=== PATIENT | female | born 2000 | race Two or more races ===

== ENCOUNTER 2025-01-24 08:48 | Emergency (ER) | payer MEDICAID ==
[~2025-01-24] VITALS: Ht 165.1 cm; Wt 140.8 kg
[2025-01-24 09:11] VITALS: BP 141/95; PULSE 93; RESP 18; TEMP 98.8; O2SAT 98
--- NOTE | 2025-01-24 09:22 | ED.PDOC ---
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 PATIENT STATES SHE HAS BEEN EXPERIENCING VAGINAL BLEEDING FOR THE PAST 1.5 YEARS WITH WORSENING SYMPTOMS OVER LAST 4 MONTHS. PATIENT NOTES SHE HAD AN ULTRASOUND DONE 3 WEEKS AGO, BUT IS STILL PENDING HER RESULTS. PATIENT STATES SHE IS NOW EXPERIENCING MILD DIZZINESS DUE TO HER VAGINAL BLEEDING AND WOULD LIKE TO BE EVALUATED. PATIENT REPORTS SHE WAS PRESCRIBED PROVERA FOR HER BLEEDING, BUT STATES HE HAS NOT BEEN HELPING HER SYMPTOMS. PATIENT DENIES DYSURIA, HEMATURIA, VAGINAL DISCHARGE, FEVER, CHILLS, SHORTNESS OF BREATH, CHEST PAIN, ABDOMINAL PAIN, NAUSEA, VOMITING, HEADACHE, OR OTHER COMPLAINTS. NO OTHER SYMPTOMS OR MODIFYING FACTORS AT THIS TIME. PATIENT IS ALERT, ORIENTED X 4, AND HAS STEADY GAIT. Chief Complaint: Vaginal Bleed Time Seen by MD: 08:55 Reviewed Notes: Nurses Notes, Medications, Allergies Allergies: Coded Allergies: NO KNOWN ALLERGIES (Unverified , 11/25/23) Home Meds Active Scripts Sulfamethoxazole W/Trimethopri (Bactrim Ds Tablet) 1 Tab Tb, 1 TAB PO BID for 7 Days, #14 TAB Prov:YOLANDA AVALOS 01/24/25 Naproxen (Naproxen) 500 Mg Tab, 500 MG PO BID, #30 TAB Prov:YOLANDA AVALOS 01/24/25 Information Source: Patient Mode of Arrival: Ambulatory Timing: Days Prehospital treatment: None Severity: Moderate Vaginal Discharge: None Vaginal Lesions: None Bleeding Quality: Bright Red Vaginal Mass: None Onset Of Mass/Bleeding: Spontaneous Sexual Activity: Neither Control: None Blood Type: Unknown Symptoms of Possible : None Associated Signs and Symptoms: Vaginal Bleeding Past Medical History PAST MEDICAL HISTORY: CVA, Denies Surgical History: Denies all surgeries CAREER REPRESENTATIVE History: Denies all CAREER REPRESENTATIVE Hx Family History Family History: Reviewed,noncontributory to illness Social History Smoker: Non-Smoker Alcohol: Denies ETOH Use Drugs: Denies Drug Use Lives In: Home Constitutional: denies: chills, diaphoresis, fatigue, fever, malaise, sweats, weakness, others EENTM: denies: blurred vision, double vision, ear bleeding, ear discharge, ear drainage, ear pain, ear ringing, eye pain, eye redness, hearing loss, mouth pain, mouth swelling, nasal discharge, nose bleeding, nose congestion, nose pain, photophobia, tearing, throat pain, throat swelling, voice changes, others Respiratory: denies: cough, hemoptysis, orthopnea, SOB at rest, shortness of breath, SOB with excertion, stridor, wheezing, others Cardiovascular: denies: chest pain, dizzy spells, diaphoresis, Dyspnea on exertion, edema, irregular heart beat, left arm pain, lightheadedness, palpitations, PND, syncope, others Gastrointestinal: denies: abdomen distended, abdominal pain, blood streaked bowels, constipated, diarrhea, dysphagia, difficulty swallowing, hematemesis, melena, nausea, poor appetite, poor fluid intake, rectal bleeding, rectal pain, vomiting, others Genitourinary: reports: abnormal vagina bleeding; denies: burning, dyspareunia, dysuria, flank pain, frequency, hematuria, incontinence, pain, , vagina discharge, urgency, others Neurological: reports: dizziness; denies: fainting, headache, left sided numbness, left sided weakness, numbness, paresthesia, pre-existing deficit, right sided numbness, right sided weakness, seizure, speech problems, tingling, tremors, weakness, others Musculoskeletal: denies: back pain, gout, joint pain, joint swelling, muscle pain, muscle stiffness, neck pain, others Integumetry: denies: bruises, change in color, change in hair/nails, dryness, laceration, lesions, lumps, rash, wounds, others Allergic/Immunocompromised: denies: Difficulty Healing, Frequent Infections, Hives, Itching, others Hematologic/Lymphatic: denies: anemia, blood clots, easy bleeding, easy bruis ing, swollen glands, others Endocrine: denies: excessive hunger, excessive sweating, excessive thirst, exc essive urination, flushing, intolerance to cold, intolerance to heat, unexplained weight gain, unexplained weight loss, others Psychiatric: denies: anxiety, bipolar disorder, depression, hopeless, panic disorder, schizophrenia, sleepless, suicidal, others All Other Systems: Reviewed and Negative Physical Exam General Appearance: No Apparent Distress, Obese HEENT: Normal ENT Inspection, PERRL/EOMI, Pharynx Normal, TMs Normal Neck: Full Range of Motion, Non-Tender, Normal, Normal Inspection Respiratory: Chest Non-Tender, Lungs Clear, No Accessory Muscle Use, No Respiratory Distress, Normal Breath Sounds Cardiovascular: No Edema, No JVD, No Murmur, No Gallop, Normal Peripheral Pulses, Regular Rate/Rhythm Breast Exam: Deferred Gastrointestinal: No Organomegaly, Non Tender, No Pulsatile Mass, Normal Bowel Sounds, Soft Genitalia: Deferred Pelvic: Normal External Exam, Tender Uterus, Vaginal Bleeding (MENSTRUAL BLEEDING, NO BLOOD CLOTS. ) Rectal: Deferred Extremities: No calf tenderness, Normal capillary refill, Normal inspection, Normal range of motion, Non-tender, No pedal edema Musculoskeletal : Apperance: Normal Neurologic: Alert, bed teacher II-XII nml as Tested, No Motor Deficits, Normal Affect, Normal Mood, No Sensory Deficits Cerebellar Function: Normal Reflexes: Normal Skin: Dry, Normal Color, Warm Peripheral Pulses: 2+ carotid (R), 2+ carotid (L) Lymphatic: No Adenopathy Was a procedure done? Was a procedure done?: No Differential Diagnosis (CAREER REPRESENTATIVE) Vaginal Bleeding: Blood Loss Anemia, Dysmenorrhea, Menorrhagia, Menstrual Bleeding, Myomatous Uterus, UTI, Vaginitis, Other (DYSFUNCTIONAL UTERINE BLEEDING, UTERINE FIBROID, OVARIAN CYST) Mass / Lesion: N/A Vaginal Discharge: N/A X-Ray, Labs, Meds, VS Vital Signs Date Time Temp Pulse Resp B/P (MAP) Pulse Ox O2 Delivery O2 Flow Rate FiO2 01/24/25 09:11 98.8 93 18 141/95 (110) 98 98.8 01/24/25 09:11 93 18 98 Room Air 01/24/25 08:58 98.8 93 18 141/95 (110) 98 98.8 Lab Test 01/24/25 09:32 01/24/25 09:30 Range/Units White Blood Count 7.8 4.4-10.8 10^3/uL Red Blood Count 4.14 4.0-5.20 10^6/uL Hemoglobin 11.4 L 12.2-16.2 g/dL Hematocrit 33.6 L 36.0-46.0 % Mean Corpuscular Volume 81.2 80.0-100.0 fL Mean Corpuscular Hemoglobin 27.5 L 28.0-32.0 pg Mean Corpuscular Hemoglobin Concent 33.8 32.0-36.0 g/dL Red Cell Distribution Width 14.0 11.8-14.3 % Platelet Count 368 140-450 10^3/uL Mean Platelet Volume 8.2 6.9-10.8 fL Neutrophils (%) (Auto) 62.6 37.0-80.0 % Lymphocytes (%) (Auto) 31.2 10.0-50.0 % Monocytes (%) (Auto) 4.9 0.0-12.0 % Eosinophils (%) (Auto) 0.8 0.0-7.0 % Basophils (%) (Auto) 0.5 0.0-2.0 % Neutrophils # (Auto) 4.9 1.6-8.6 10 ^3/uL Lymphocytes # (Auto) 2.4 0.4-5.4 10 ^3/uL Monocytes # (Auto) 0.4 0-1.3 10 ^3/uL Eosinophils # (Auto) 0.1 0-0.8 10 ^3/uL Basophils # (Auto) 0 0-0.2 10 ^3/uL Nucleated Red Blood Cells 0.1 % Sodium Level 138 136-145 mmol/L Potassium Level 4.1 3.5-5.1 mmol/L Chloride Level 105 98-107 mmol/L Carbon Dioxide Level 25 20-31 mmol/L Anion Gap 8 5-15 Blood Urea Nitrogen 9 9-23 mg/dL Creatinine 0.63 0.550-1.02 mg/dL Glomerular Filtration Rate Calc 128 >90 mL/min BUN/Creatinine Ratio 14.3 10.0-20.0 Serum Glucose 103 74-106 mg/dL Calcium Level 9.9 8.7-10.4 mg/dL Urine Color Light-red Yellow Urine Clarity Ex.turbid Clear Urine pH 5.0 5.0-9.0 Urine Specific [place] 1.023 1.001-1.035 Urine Protein 1+ H Negative Urine Ketones Trace Negative Urine Blood 3+ H Negative /uL Urine Nitrite Negative Negative Urine Bilirubin Negative Negative Urine Urobilinogen Normal Negative mg/dL Urine Leukocyte Esterase 1+ Negative /uL Urine RBC 8435 0 - 4 /hpf Urine Microscopic WBC 303 H 0-5 /HPF Urine Squamous Epithelial Cells None seen <5 /hpf Urine Bacteria None seen None Seen /hpf Urine Mucus Few None Seen Urine Glucose Normal Normal mg/dL Urine Test Negative Negative Current Medications Medications (Trade) Dose Ordered Sig/Sherry Route Start Time Stop Time Status Last Admin Ketorolac Tromethamine (Toradol Injection) 60 mg ONCE ONCE IM 01/24/25 11:00 01/24/25 11:01 DC 01/24/25 11:00 CLINICAL HISTORY: Prolonged menstrual periods. COMPARISON:None TECHNIQUE: Transabdominal grayscale sonographic imaging of the uterus and ovaries was performed, assisted by color Doppler technique. Duplex Doppler ultra sound of both ovaries was also performed. FINDINGS: The uterus measures 7.3 x 5.8 x 3.9 cm. There is homogeneous echogenicity. Endometrial thickness measures 1.0 cm, within normal limits. Small amount of free fluid cul-de-sac, likely physiologic. Right ovary measures 4.0 x 2.3 x 2.6 cm. Arterial and venous blood flow demonstrated. Cyst in the right ovary measures up to 1.1 cm. Left ovary measures 3.7 x 2.1 x 1.6 cm. Arterial and venous blood flow demonstrated. IMPRESSION: 1. Dominant follicle/ cyst in the right ovary. 2. Small amount of fluid in the cul-de-sac. 3. Otherwise unremarkable examination. ATED BY: PRITESH WOODY DO DICTATED DATE/TIME: 01/24/25 111 SIGNED BY: PRITESH WOODY DO SIGNED DATE/TIME: 01/24/251111 CC: X-Ray, Labs, Meds, VS Comment EXTERNAL MEDICAL RECORDS REVIEWED: [NONE] INDEPENDENT HISTORIANS: [NONE] SOCIAL DETERMINANTS OF HEALTH: [NONE] LABS ORDERED: CBC, BMP, UA. URINE REVIEWED AND INTERPRETED RESULTS: BLOOD 3+, LEUKO 1+, WBC 303 IMAGING ORDERED: US PELVIS: [INTERPRETED BY U.S. TECH. RIGHT OVARIAN CYST SEEN. NO OTHER ABNORMALITY SEEN AT THIS TIME. PENDING RADIOLOGY REVIEW.] TREATMENTS ORDERED: TORADOL 60MG IM PROCEDURES PERFORMED: NONE CRITICAL CARE TIME: NONE I HAVE DISCUSSED THE PATIENT WITH THE ATTENDING PHYSICIAN DR. SABRA REY AND SHE AGREES WITH THE PATIENT'S PLAN OF CARE AND DISPOSITION. BASED ON HISTORY OF PRESENT ILLNESS, AND PHYSICAL EXAM, PATIENT WILL BE DISCHARGED HOME. DISCUSSED PLAN FOR DISCHARGE HOME WITH RX [NAPROXEN 500MG AND SEPTRA DS]. MEDICATION WARNINGS GIVEN. SHARED DECISION MAKING: PATIENT INSTRUCTED TO FOLLOW UP WITH PRIMARY CARE PROVIDER IN 1-2 DAYS FOR RE-EVALUATION OF SYMPTOMS. PATIENT VERBALIZES UNDERSTANDING TO RETURN TO ED FOR NEW OR WORSENING SYMPTOMS OR IF FOLLOW UP WITH PCP CANNOT BE OBTAINED. PATIENT FEELS COMFORTABLE GOING HOME AT THIS TIME. ALL QUESTIONS ADDRESSED AT TIME OF DISCHARGE. Images Reviewed?: Images reviewed and evaluated by me Time of 1ST Reevaluation: 11:20 Reevaluation 1ST: Improved Patient Education/Counseling: Diagnosis, Treatment, Need For Follow Up Family Education/Counseling: Diagnosis, Treatment, Need For Follow Up Departure 1 Departure Time of Disposition: 11:20 Impression: Primary Impression: Prolonged menstrual cycle Additional Impressions: Dysfunctional uterine bleeding Acute cystitis Qualified Codes: N30.01 - Acute cystitis with hematuria Right ovarian cyst Disposition: HOME / SELF CARE / HOMELESS Condition: Stable Additional Instructions: FOLLOW-UP WITH PCP AND DATA PROCESSING EQUIPMENT REPAIRER IN 1 TO 2 DAYS. TAKE MEDICATIONS PRESCRIBED. RETURN TO ED FOR ANY NEW OR WORSENING SYMPTOMS. e-Prescriptions Sulfamethoxazole W/Trimethopri (Bactrim Ds Tablet) 1 Tab Tb 1 TAB PO BID for 7 Days, #14 TAB Prov: YOLANDA AVALOS 01/24/25 Naproxen (Naproxen) 500 Mg Tab 500 MG PO BID, #30 TAB Prov: YOLANDA AVALOS 01/24/25 Discharged With: Self Critical Care Note Critical Care Time?: No Stability Stability form required: No I personally scribed for YOLANDA AVALOS ([email or web address]) on 01/24/25 at 09:22. Electronically submitted by Pramod Mccullough ([email or web address]). I personally scribed for YOLANDA AVALOS ([email or web address]) on 01/24/25 at 11:05. Electronically submitted by Pramod Mccullough ([email or web address]). I personally scribed for ERICK ARREDONDO MD ([email or web address]) on 01/24/25 at 11:18. Electronically submitted by Pramod Mccullough ([email or web address]). YOLANDA AVALOS Jan 24, 2025 09:22 ERICK ARREDONDO MD Jan 24, 2025 11:18
[2025-01-24 09:43] LABS: Urine Bacteria None Seen /hpf (None Seen)
[2025-01-24 10:13] LABS: Basophils # (auto) 0 10 ^3/uL (0-0.2); Basophils % (auto) 0.5 % (0.0-2.0); Eosinophils # (auto) 0.1 10 ^3/uL (0-0.8); Eosinophils % (auto) 0.8 % (0.0-7.0); Hematocrit 33.6 % (36.0-46.0); Hemoglobin 11.4 g/dL (12.2-16.2); Lymphocytes # (auto) 2.4 10 ^3/uL (0.4-5.4); Lymphocytes % (auto) 31.2 % (10.0-50.0); Mean Corpuscular Hemoglobin 27.5 pg (28.0-32.0); Mean Corpuscular Hgb Conc. 33.8 g/dL (32.0-36.0); Mean Corpuscular Volume 81.2 fL (80.0-100.0); Monocytes # (auto) 0.4 10 ^3/uL (0-1.3); Monocytes % (auto) 4.9 % (0.0-12.0); Neutrophils # (auto) 4.9 10 ^3/uL (1.6-8.6); Neutrophils % (auto) 62.6 % (37.0-80.0); Nucleated Red Blood Cells % 0.1 %; Platelet Count (auto) 368 10^3/uL (140-450); Red Blood Cells 4.14 10^6/uL (4.0-5.20); White Blood Cell 7.8 10^3/uL (4.4-10.8)
[2025-01-24 10:21] LABS: Urine Blood 3+ /uL (Negative); Urine Clarity Ex.Turbid (Clear); Urine Color Light-Red (Yellow); Urine Mucus FEW (None Seen); Urine Protein, UAD 1+ (Negative); Urine Specific Gravity 1.023 (1.001-1.035); Urine Squamous Epithelial Cell None Seen /hpf (<5); Urine Urobilinogen Normal (Negative); Urine WBC 303 /HPF (0-5)
[2025-01-24 10:26] LABS: Chloride 105 mmol/L (98-107); Potassium 4.1 mmol/L (3.5-5.1); Sodium 138 mmol/L (136-145)
[2025-01-24 10:27] LABS: Anion Gap 8 (5-15); Calcium 9.9 mg/dL (8.7-10.4); Carbon Dioxide 25 mmol/L (20-31)
[2025-01-24 10:32] LABS: BUN/Creatinine Ratio 14.3 (10.0-20.0); Glucose 103 mg/dL (74-106)
[2025-01-24 10:33] LABS: Blood Urea Nitrogen 9 mg/dL (9-23)
[2025-01-24] MEDS: KETOROLAC TROMETH 60MG/2ML VIAL IM ONE (11:00)
[2025-01-24] MEDS ORDERED: NAPR-746 PO (11:04)
[2025-01-24] MEDS ORDERED: BACDST PO (11:04)
--- NOTE | 2025-01-24 11:14 | DVH ---
CLINICAL HISTORY: Prolonged menstrual periods. COMPARISON:None TECHNIQUE: Transabdominal grayscale sonographic imaging of the uterus and ovaries was performed, assi sted by color Doppler technique. Duplex Doppler ultrasound of both ovaries was also performed. FINDINGS: The uterus measures 7.3 x 5.8 x 3.9 cm. There is homogeneous echogenicity. Endometrial thic kness measures 1.0 cm, within normal limits. Small amount of free fluid cul-de-sac, likely physiologi c. Right ovary measures 4.0 x 2.3 x 2.6 cm. Arterial and venous blood flow demonstrated. Cyst in the rig ht ovary measures up to 1.1 cm. Left ovary measures 3.7 x 2.1 x 1.6 cm. Arterial and venous blood flow demonstrated. IMPRESSION: 1. Dominant follicle/ cyst in the right ovary. 2. Small amount of fluid in the cul-de-sac. 3. Otherwise unremarkable examination.
== END 2025-01-24 11:19 | disposition home or self-care (01) ==
LOC: ER 08:48
DX: N92.1 Excessive and frequent menstruation with irregular cycle (principal); N93.8 Other specified abnormal uterine and vaginal bleeding; N30.00 Acute cystitis without hematuria; N83.201 Unspecified ovarian cyst, right side
CPT/HCPCS: 36415; 76856; 80048; 81001; 81025; 85025; 96372; 99285; J1885